=== PATIENT | male | born 1975 | race Two or more races ===

== ENCOUNTER 2017-05-31 22:09 | Emergency (ER) | payer SELFPAY ==
[~2017-05-31] VITALS: Ht 182.9 cm; Wt 95.3 kg
[~2017-05-31 22:09] MED LIST: UNOBMED
[2017-05-31] MEDS ORDERED: Haloperidol 5mg/ml Inj IM ONE (22:30)
[2017-05-31 23:03] VITALS: BP 142/88
--- NOTE | 2017-05-31 23:06 | Emergency Room Report ---
History of Present Illness General Chief Complaint: Behavioral Complaint Source: Patient, EMS Present Illness HPI Is a 41-year-old male with history of schizophrenia. He was taking Zyprexa and Zoloft in the past. Currently not on any medication. He tried homeopathic medication. Patient is and was living with his mother. She kicked him out of the house because he was been aggressive. He was knocking on doors of people around the apartment complex. Someone called 911. EMS found him only in a roll the walking around. They convinced him to come here. Patient denies suicidal thoughts or homicidal thought. Said he has hard time sleeping. Has racing thoughts. No other complaint. Denies any drug use or alcohol use. Allergies: Coded Allergies: No Known Allergies (Unverified , 05/31/17) Patient History Past Medical History: see triage record, old chart reviewed Past Surgical History: none Family History: none Social History: tobacco use, Immunizations: other Reviewed Nursing Documentation: PMH: Agreed, PSxH: Agreed Nursing Documentation-PMH History Of Psychiatric Problem: Yes Review of Systems ENT: Denies: sore throat Cardiovascular: Denies: chest pain, palpitations Gastrointestinal/Abdominal: Denies: nausea, vomiting, diarrhea Musculoskeletal: Denies: back problems Skin: Denies: rash Neurological: Denies: CALDERON, seizures All Other Systems: negative except mentioned in HPI Physical Exam Vital Signs Date Time Temp Pulse Resp B/P (MAP) Pulse Ox O2 Delivery O2 Flow Rate FiO2 05/31/17 21:55 97.9 126 16 146/92 98 Room Air vitals with tachycardi Sp02 EP Interpretation: reviewed, normal General Appearance: alert/responsive, no apparent distress, non-toxic Head: normocephalic, atraumatic Eyes: PERRL, EOMI ENT: oropharynx normal Neck: supple/symm/no masses Respiratory: effort normal, no rhonchi, no wheezing Cardiovascular: no murmur, gallop, rub Gastrointestinal: non-tender, no mass, non-distended, no rebound/guarding, normal bowel sounds Musculoskeletal: gait & station normal Neurologic: oriented x3, sensory intact, motor strength/tone normal Psychiatric: other - Agitated. Unable to hold still. Skin: no rash, normal palpation Medical Decision Making Diagnostic Impression: Primary Impression: Psychosis Qualified Codes: F23 - Brief psychotic disorder Additional Impression: Gravely disabled ER Course Patient presents with acute psychosis secondary to noncompliance with medication. He is gravely disabled. Very poor insight. He is better after a dose of Haldol. No evidence of any drug use. Has no abdominal pain. We'll get psychiatric evaluation. He is medically clear. Lab Results Impression labs with elevated liver enzymes. Last Vital Signs Date Time Temp Pulse Resp B/P (MAP) Pulse Ox O2 Delivery O2 Flow Rate FiO2 05/31/17 23:03 97.9 74 16 142/88 98 Room Air Status: improved Disposition: XFER TO PSYCH HOSP/UNIT Condition: Stable Referrals: NOT CHOSEN SALLY/,REFERRING (PCP) WILLARD GUTIERREZ M.D. May 31, 2017 23:06
[2017-05-31 23:09] LABS: LYMPHOCYTES % (AUTO) 13.9 % (20.0-45.0); MEAN CORPUSCULAR HEMOGLOBIN 28.3 PG (27.0-31.0); MEAN CORPUSCULAR HGB CONC 33.6 G/DL (32.0-36.0); MEAN CORPUSCULAR VOLUME 84 FL (80-99); MEAN PLATELET VOLUME 10.1 FL (6.5-10.1); NEUTROPHILS % (AUTO) 74.3 % (45.0-75.0); PLATELET COUNT 92 K/UL (150-450); RED BLOOD COUNT 6.12 M/UL (4.70-6.10); RED CELL DISTRIBUTION WIDTH 11.6 % (11.6-14.8); WHITE BLOOD COUNT 9.2 K/UL (4.8-10.8)
[2017-05-31 23:10] LABS: BASOPHILS % (AUTO) 0.6 % (0.0-2.0); EOSINOPHILS % (AUTO) 0.8 % (0.0-3.0); MONOCYTES % (AUTO) 10.3 % (1.0-10.0)
[2017-05-31 23:22] LABS: ANION GAP 12 mmol/L (5-15); CALCIUM 9.7 MG/DL (8.5-10.1); CARBON DIOXIDE 25 MMOL/L (21-32); CHLORIDE 99 MMOL/L (98-107); CREATININE 1.1 MG/DL (0.55-1.30); GLOMERULAR FILTRATION RATE > 60 mL/min (>60); POTASSIUM 4.2 MMOL/L (3.5-5.1); SODIUM 135 MMOL/L (136-145)
[2017-05-31 23:32] LABS: ALANINE AMINOTRANSFERASE 281 U/L (12-78); ALCOHOL < 3 mg/dL; ASPARTATE AMINO TRANSFERASE 879 U/L (15-37); TOTAL PROTEIN 8.7 G/DL (6.4-8.2)
[2017-05-31 23:40] LABS: ACETAMINOPHEN < 2 MCG/ML (10-30)
[2017-06-01 00:20] VITALS: BP 144/82
[2017-06-01 02:05] VITALS: BP 132/68
[2017-06-01 04:41] VITALS: BP 131/78
[2017-06-01 06:30] VITALS: BP 127/69
--- NOTE | 2017-06-01 10:52 | Consultation ---
History of Present Illness General Date patient seen: Jun 01, 2017 Chief Complaint: Behavioral Complaint Present Illness HPI 41 yo with hx of alcohol dependence and depression. He denied hx of schizophrenia. the pt stated that he has stopped drinking heavily 6-7 months ago. the pt pw depressive sxs and insomnia. No si/hi. the pt stated that he has not been sleeping however he feels better now. He denied depressive sxs and stated that he does not want to take any medications. the pt stated his mother is now very supportive and is going to help him not to drink. the pt is going to move in with his mom. the pt is not endorsing manic/psychotic sxs. no psych hospitalization. no sa Allergies: Coded Allergies: No Known Allergies (Unverified , 05/31/17) Medication History Miscellaneous Medications Unable to Obtain Medications (Unable To Obtain Meds), (Reported) Patient History History Provided By: Patient, Medical Record, PMD Healthcare decision maker Resuscitation status Advanced Directive on File Review of Systems Psychiatric: Reports: see HPI, prior hx, depressed feelings, emotional problems Physical Exam General Appearance: WD/WN, no apparent distress, alert Neurologic: alert, oriented x 3, responsive, normal mood/affect Last 24 Hour Vital Signs Date Time Temp Pulse Resp B/P (MAP) Pulse Ox O2 Delivery O2 Flow Rate FiO2 06/01/17 06:30 98.0 82 18 127/69 99 Room Air 06/01/17 04:41 98.2 78 18 131/78 99 Room Air 06/01/17 02:05 98.1 77 18 132/68 99 Room Air 06/01/17 00:20 98.2 76 18 144/82 99 Room Air 05/31/17 23:03 97.9 74 16 142/88 98 Room Air 05/31/17 21:55 97.9 126 16 146/92 98 Room Air Laboratory Tests Test 05/31/17 22:11 05/31/17 22:55 Urine Opiates Screen Negative (NEGATIVE) Urine Barbiturates Screen Negative (NEGATIVE) Phencyclidine (PCP) Screen Negative (NEGATIVE) Urine Amphetamines Screen Negative (NEGATIVE) Urine Benzodiazepines Screen Negative (NEGATIVE) Urine Cocaine Screen Negative (NEGATIVE) Urine Marijuana (THC) Screen Positive (NEGATIVE) H White Blood Count 9.2 K/UL (4.8-10.8) Red Blood Count 6.12 M/UL (4.70-6.10) H Hemoglobin 17.3 G/DL (14.2-18.0) Hematocrit 51.5 % (42.0-52.0) Mean Corpuscular Volume 84 FL (80-99) Mean Corpuscular Hemoglobin 28.3 PG (27.0-31.0) Mean Corpuscular Hemoglobin Concent 33.6 G/DL (32.0-36.0) Red Cell Distribution Width 11.6 % (11.6-14.8) Platelet Count 92 K/UL (150-450) L Mean Platelet Volume 10.1 FL (6.5-10.1) Neutrophils (%) (Auto) 74.3 % (45.0-75.0) Lymphocytes (%) (Auto) 13.9 % (20.0-45.0) L Monocytes (%) (Auto) 10.3 % (1.0-10.0) H Eosinophils (%) (Auto) 0.8 % (0.0-3.0) Basophils (%) (Auto) 0.6 % (0.0-2.0) Sodium Level 135 MMOL/L (136-145) L Potassium Level 4.2 MMOL/L (3.5-5.1) Chloride Level 99 MMOL/L (98-107) Carbon Dioxide Level 25 MMOL/L (21-32) Anion Gap 12 mmol/L (5-15) Blood Urea Nitrogen 15 mg/dL (7-18) Creatinine 1.1 MG/DL (0.55-1.30) Estimat Glomerular Filtration Rate > 60 mL/min (>60) Glucose Level 73 MG/DL (74-106) L Calcium Level 9.7 MG/DL (8.5-10.1) Total Bilirubin 3.5 MG/DL (0.2-1.0) H Direct Bilirubin 1.0 MG/DL (0.0-0.3) H Aspartate Amino Transf (AST/SGOT) 879 U/L (15-37) H Alanine Aminotransferase (ALT/SGPT) 281 U/L (12-78) H Alkaline Phosphatase 87 U/L (46-116) Total Protein 8.7 G/DL (6.4-8.2) H Albumin 4.3 G/DL (3.4-5.0) Globulin 4.4 g/dL Albumin/Globulin Ratio 1.0 (1.0-2.7) Salicylates Level < 0.2 ug/mL (2.8-20) L Acetaminophen Level < 2 MCG/ML (10-30) L Serum Alcohol < 3 mg/dL Height (Feet): 6 Weight (Pounds): 210 Assessment/Plan Status: stable Assessment/Plan alcohol dependence -the pt is reluctant to meds -not a 5150 hold - the pt will pray to Beena Hardwick M.D. Jun 01, 2017 10:52
[2017-06-01] MEDS ORDERED: PROZAC20 MG ORAL (10:54)
[2017-06-01 11:04] VITALS: BP 126/69
[2017-06-01 11:08] VITALS: BP 126/69
== END 2017-06-01 11:10 ==
LOC: EDBD 22:09 → EMR 22:30
DX: F23 Brief psychotic disorder (principal)
CPT/HCPCS: 36415; 80053; 80307; 82248; 85025; 96372; 99284; G0480; J1630; 80329